=== PATIENT | female | born 1970 | race African-American/Black ===

== ENCOUNTER 2022-12-03 08:23 | Emergency (ER) | payer MEDICARE, OTHER ==
[~2022-12-03] VITALS: Ht 175.3 cm; Wt 96.0 kg
[2022-12-03 08:46] LABS: Basophils # (auto) 0.1 10 ^3/uL (0-0.2); Basophils % (auto) 1.4 % (0.0-2.0); Eosinophils # (auto) 0.1 10 ^3/uL (0-0.8); Hematocrit 41.3 % (36.0-46.0); Hemoglobin 13.7 g/dL (12.2-16.2); Lymphocytes # (auto) 2.5 10 ^3/uL (0.4-5.4); Lymphocytes % (auto) 36.1 % (10.0-50.0); Mean Corpuscular Hemoglobin 27.7 pg (28.0-32.0); Mean Corpuscular Hgb Conc. 33.3 g/dL (32.0-36.0); Mean Corpuscular Volume 83.2 fL (80.0-100.0); Monocytes # (auto) 0.5 10 ^3/uL (0-1.3); Monocytes % (auto) 7.7 % (0.0-12.0); Neutrophils # (auto) 3.8 10 ^3/uL (1.6-8.6); Neutrophils % (auto) 53.8 % (37.0-80.0); Nucleated Red Blood Cells % 0.2 %; Red Blood Cells 4.96 10^6/uL (4.0-5.20); Red Cell Distribution Width 13.4 % (11.8-14.3)
[2022-12-03 08:59] LABS: INR 0.97 (0.9-1.15); Partial Thromboplastin Time 29.4 sec (24.6-33.4)
[2022-12-03 09:13] LABS: Albumin 3.9 g/dL (3.4-5.0); Calcium 10.7 mg/dL (8.5-10.1); Magnesium 2.4 mg/dL (1.6-2.6); Potassium 4.1 mmol/L (3.5-5.1)
[2022-12-03 09:17] LABS: BUN/Creatinine Ratio 16.4 (10.0-20.0); Bilirubin, Total 0.5 mg/dL (0.2-1.0); Total Protein 7.8 g/dL (6.4-8.2)
[2022-12-03] MEDS ORDERED: METO-289 PO (12:53)
[2022-12-03 14:11] VITALS: BP 147/85
== END 2022-12-03 14:14 | disposition home or self-care (01) ==
LOC: ER 08:23
DX: R00.2 Palpitations (principal); I10 Essential (primary) hypertension; Z79.01 Long term (current) use of anticoagulants
CPT/HCPCS: 36415; 71046; 80053; 83735; 84443; 84484; 85025; 85610; 85730; 93005

== ENCOUNTER 2022-12-12 20:31 | Emergency (ER) | payer MEDICARE, OTHER ==
[~2022-12-12] VITALS: Ht 165.1 cm; Wt 88.6 kg
[~2022-12-12 20:31] MED LIST: METO-289 PO
[2022-12-12 21:04] LABS: Basophils # (auto) 0.1 10 ^3/uL (0-0.2); Basophils % (auto) 1.9 % (0.0-2.0); Eosinophils # (auto) 0.1 10 ^3/uL (0-0.8); Eosinophils % (auto) 1.1 % (0.0-7.0); Hematocrit 38.4 % (36.0-46.0); Hemoglobin 12.6 g/dL (12.2-16.2); Lymphocytes # (auto) 3.4 10 ^3/uL (0.4-5.4); Lymphocytes % (auto) 45.4 % (10.0-50.0); Mean Corpuscular Hemoglobin 27.5 pg (28.0-32.0); Mean Corpuscular Hgb Conc. 32.9 g/dL (32.0-36.0); Mean Corpuscular Volume 83.7 fL (80.0-100.0); Monocytes # (auto) 0.6 10 ^3/uL (0-1.3); Monocytes % (auto) 8.1 % (0.0-12.0); Neutrophils # (auto) 3.3 10 ^3/uL (1.6-8.6); Neutrophils % (auto) 43.5 % (37.0-80.0); Nucleated Red Blood Cells % 0.3 %; Red Blood Cells 4.59 10^6/uL (4.0-5.20); Red Cell Distribution Width 13.5 % (11.8-14.3); White Blood Cell 7.5 10^3/uL (4.4-10.8)
[2022-12-12 21:20] LABS: INR 0.95 (0.9-1.15); Partial Thromboplastin Time 25.9 sec (24.6-33.4)
[2022-12-12 21:23] LABS: Albumin 3.6 g/dL (3.4-5.0); Calcium 10.2 mg/dL (8.5-10.1); Magnesium 2.4 mg/dL (1.6-2.6)
[2022-12-12 21:27] LABS: BUN/Creatinine Ratio 17.3 (10.0-20.0); Bilirubin, Total 0.3 mg/dL (0.2-1.0); Total Protein 7.6 g/dL (6.4-8.2)
[2022-12-13 04:46] VITALS: BP 137/80
== END 2022-12-13 04:50 | disposition home or self-care (01) ==
LOC: ER 20:31
DX: R07.89 Other chest pain (principal); I10 Essential (primary) hypertension
CPT/HCPCS: 36415; 71045; 80053; 83735; 83880; 84484; 85025; 85610; 85730; 93005